=== PATIENT | female | born 1950 | race African-American/Black ===

== ENCOUNTER 2016-07-27 00:57 | Emergency (ER) | payer OTHER ==
[~2016-07-27] VITALS: Ht 170.2 cm; Wt 127.0 kg
[2016-07-27 00:57] VITALS: BP 173/98; PULSE 82; RESP 20; TEMP 98.1; O2SAT 97
--- NOTE | 2016-07-27 00:57 | NUR ---
Patient to ER bed 6 to gown for evaluation. Side rails up. Report given to Kateryna ZARAGOZA .
--- NOTE | 2016-07-27 00:57 | NUR ---
Marlene horta in ED - 07/27/16 at 0138 by TEDDY Patient to ER bed 6 to bannereleanor for evaluation. Side rails up. Report given to eDanna ZARAGOZA.
[2016-07-27] MEDS ORDERED: NACL 0.9% 1,000 ML IV ONE (01:04)
--- NOTE | 2016-07-27 01:08 | NUR ---
ER Dr. MARTINEZ at bedside examining patient.
[2016-07-27] MEDS ORDERED: KETOROLAC TROMETHAMINE 30 MG VIAL IVP ONE (01:15)
[2016-07-27] MEDS ORDERED: ONDANSETRON HCL 4 MG/2 ML VIAL IVP ONE (01:15)
[2016-07-27] MEDS ORDERED: DEXAMETHASONE SOD PHOSPHATE 10 MG/ML VIAL IVP ONE (01:15)
[2016-07-27 02:02] LABS: BASOPHILS # (AUTO) 0.3 K/uL (0.0-0.2); BASOPHILS % (AUTO) 2.8 % (0.0-2.0); EOSINOPHILS # (AUTO) 0.1 K/uL (0.0-0.4); EOSINOPHILS % (AUTO) 0.9 % (0.0-4.0); HEMATOCRIT 42.7 % (36-48); HEMOGLOBIN 14.1 g/dL (12.0-16.0); LYMPHOCYTES # (AUTO) 1.7 K/uL (1.0-5.5); LYMPHOCYTES % (AUTO) 15.7 % (20.5-51.5); MEAN CORPUSCULAR HEMOGLOBIN 29 pg (27-31); MEAN CORPUSCULAR HGB CONC 33 % (32-36); MEAN CORPUSCULAR VOLUME 87 fL (79.0-98.0); MONOCYTES # (AUTO) 0.3 K/uL (0.0-1.0); MONOCYTES % (AUTO) 3.1 % (1.7-9.3); NEUTROPHILS # (AUTO) 8.2 K/uL (1.8-7.7); NEUTROPHILS % (AUTO) 77.5 % (40.0-70.0); PLATELET COUNT (AUTO) 244 K/uL (130-430); RED BLOOD CELL COUNT(AUTO) 4.91 MIL/uL (4.2-6.2); RED CELL DISTRIBUTION WIDTH 12.9 % (9.0-15.0); WHITE BLOOD COUNT (AUTO) 10.6 K/uL (4.8-10.8)
[2016-07-27 02:04] LABS: BILIRUBIN,URINE NEGATIVE (NEGATIVE); BLOOD, URINE 1+ (NEGATIVE); CLARITY/URINE CLEAR (CLEAR); COLOR,URINE YELLOW (YELLOW); GLUCOSE,URINE NEGATIVE (NEGATIVE); KETONES,URINE NEGATIVE (NEGATIVE); LEUKOCYTE ESTERASE ,URINE NEGATIVE (NEGATIVE); NITRITE, URINE NEGATIVE (NEGATIVE); PH,URINE 7.5 (5.0-8.0); PROTEIN URINE NEGATIVE (NEGATIVE); UROBILINOGEN,URINE 0.2 (0.2-1.0)
--- NOTE | 2016-07-27 02:04 | NUR ---
PT C/O ABD PAIN 11/04 AND NAUSEA TODAY, THEN HAVING V/D STARTING 6HRS AGO. AFEBRILE. BP ELEVATED. PT STATES SHE DID NOT TAKE ANY MEDS AT HOME. PT VOMITED X1 IN ROOM. SAFETY PRECAUTIONS IN PLACE, WILL CONTINUE TO MONITOR.
[2016-07-27 02:13] LABS: BACTERIA,URINE FEW /HPF (None Seen); MUCUS,URINE None Seen /LPF (None Seen); WBC,URINE 0-3 /HPF (0-3)
[2016-07-27 02:16] LABS: CALCIUM 9.2 mg/dL (8.4-11.0); CREATININE 1.07 mg/dL (0.55-1.30); POTASSIUM 4.1 mmol/L (3.5-5.1)
[2016-07-27 02:21] LABS: TOTAL BILIRUBIN 0.5 mg/dL (0.0-1.0); TOTAL PROTEIN, SERUM 8.7 g/dL (6.4-8.3)
[2016-07-27] MEDS ORDERED: DEXAMETHASONE SOD PHOSPHATE 10 MG/ML VIAL ONE (02:35)
[2016-07-27] MEDS ORDERED: PROCHLORPERAZINE EDISYLATE 10 MG/2 ML VIAL IVP ONE (02:45)
[2016-07-27 03:35] VITALS: BP 153/83; PULSE 69; RESP 20; TEMP 98.2; O2SAT 98
--- NOTE | 2016-07-27 03:35 | NUR ---
Patient given written and verbal discharge instructions and verbalizes understanding. ER MD DR. MARTINEZ discussed with patient the results and treatment provided. Patient in stable condition. ID arm band removed. IV catheter removed intact and dressing applied, no active bleeding. Rx of ZOFRAN given. Patient educated on pain management and to follow up with PMD. Pain Scale 2/10, PT STATES PAIN IS TOLERABLE AND FEELS MUCH BETTER, WHEELCHAIRED SAFELY TO PRIVATE VEHICLE. Opportunity for questions provided and answered.
== END 2016-07-27 03:35 | disposition home or self-care (01) ==
LOC: SED 00:57
DX: K52.9 Noninfective gastroenteritis and colitis, unspecified (principal); I10 Essential (primary) hypertension
CPT/HCPCS: 36415; 74176; 80053; 81000; 82150; 83690; 85025; 96361; 96374; 96375; 99285; J0780; J1885; J2405; J7030; J1100

== ENCOUNTER 2016-08-03 15:10 | Emergency (ER) | payer OTHER ==
[~2016-08-03] VITALS: Ht 177.8 cm; Wt 106.6 kg
[2016-08-03 15:27] VITALS: BP_SYST 180
[2016-08-03] MEDS ORDERED: MORPHINE 4 MG/ML INJ. SYRINGE IVP ONE (15:45)
[2016-08-03] MEDS ORDERED: DIPHENHYDRAMINE INJ 50 MG/ML VIAL IVP ONE (15:45)
[2016-08-03 16:00] LABS: BILIRUBIN,URINE NEGATIVE (NEGATIVE); CLARITY/URINE CLEAR (CLEAR); COLOR,URINE YELLOW (YELLOW); GLUCOSE,URINE NEGATIVE (NEGATIVE); KETONES,URINE NEGATIVE (NEGATIVE); LEUKOCYTE ESTERASE ,URINE NEGATIVE (NEGATIVE); NITRITE, URINE NEGATIVE (NEGATIVE); PROTEIN URINE NEGATIVE (NEGATIVE); UROBILINOGEN,URINE 0.2 (0.2-1.0)
[2016-08-03 16:24] LABS: BASOPHILS # (AUTO) 0.2 K/uL (0.0-0.2); MEAN CORPUSCULAR HEMOGLOBIN 29 pg (27-31); MEAN CORPUSCULAR HGB CONC 33 % (32-36); MONOCYTES # (AUTO) 0.8 K/uL (0.0-1.0); RED CELL DISTRIBUTION WIDTH 12.7 % (9.0-15.0)
[2016-08-03 16:27] LABS: BASOPHILS % (AUTO) 1.5 % (0.0-2.0); EOSINOPHILS # (AUTO) 0.1 K/uL (0.0-0.4); EOSINOPHILS % (AUTO) 0.6 % (0.0-4.0); HEMATOCRIT 39.4 % (36-48); HEMOGLOBIN 12.9 g/dL (12.0-16.0); LYMPHOCYTES # (AUTO) 1.9 K/uL (1.0-5.5); LYMPHOCYTES % (AUTO) 14.1 % (20.5-51.5); MEAN CORPUSCULAR VOLUME 89 fL (79.0-98.0); MONOCYTES % (AUTO) 5.8 % (1.7-9.3); NEUTROPHILS # (AUTO) 10.4 K/uL (1.8-7.7); PLATELET COUNT (AUTO) 254 K/uL (130-430); RED BLOOD CELL COUNT(AUTO) 4.44 MIL/uL (4.2-6.2); WHITE BLOOD COUNT (AUTO) 13.4 K/uL (4.8-10.8)
[2016-08-03 16:33] LABS: BLOOD, URINE TRACE (NEGATIVE)
[2016-08-03 16:38] LABS: CREATININE 1.12 mg/dL (0.55-1.30)
[2016-08-03 16:40] LABS: PROTHROMBIN TIME 10.6 SECS (9.5-12.5)
[2016-08-03 16:42] LABS: ALBUMIN 3.6 g/dL (3.4-4.8); TOTAL BILIRUBIN 0.4 mg/dL (0.0-1.0)
[2016-08-03 16:51] LABS: BACTERIA,URINE FEW /HPF (None Seen); WBC,URINE 0-3 /HPF (0-3)
[2016-08-03 16:52] LABS: MUCUS,URINE None Seen /LPF (None Seen)
[2016-08-03] MEDS ORDERED: NA PHOS,M-B/NA PHOS,DI-BA 118 ML (FLEET ENEMA) RC ONE (17:00)
[2016-08-03 18:01] VITALS: BP_SYST 136
== END 2016-08-03 18:01 | disposition home or self-care (01) ==
LOC: SED 15:10
DX: K59.00 Constipation, unspecified (principal); I10 Essential (primary) hypertension
CPT/HCPCS: 36415; 71010; 74176; 80053; 81000; 83605; 83690; 85025; 85610; 87040; 93005; 96374; 96375; 99285; J1200; J2270; J7030

== ENCOUNTER 2017-09-22 14:20 | Emergency (ER) | payer OTHER ==
[~2017-09-22] VITALS: Ht 170.2 cm; Wt 111.6 kg
[2017-09-22 14:29] VITALS: BP_SYST 155
--- NOTE | 2017-09-22 14:36 | NUR ---
Patient to ER bed 06 to gown for evaluation. Side rails up. Report given to Ozzie.
--- NOTE | 2017-09-22 14:38 | NUR ---
Pt AAOx4 presents to ED c/o 12/05 pain to L side of body s/p falling off chair last night. Pt took tylenol last night to tolerate pain, but pain returned today. No deformites noted to site. No other injuries/complaints per pt/noted. Will continue to monitor.
--- NOTE | 2017-09-22 14:58 | NUR ---
ER Dr. Thomson at bedside examining patient.
--- NOTE | 2017-09-22 15:09 | NUR ---
Pt refused ibuprofen, requested tylenol, Dr. Thomson notified. Verbal order of 1g Extra Strength tylenol.
--- NOTE | 2017-09-22 15:14 | NUR ---
Pt taken to radiology via wheelchair in stable condition
[2017-09-22] MEDS ORDERED: ACETAMINOPHEN 500 MG TABLET PO ONE (15:15)
[2017-09-22] MEDS ORDERED: IBUPROFEN 600 MG TABLET PO ONE (15:15)
--- NOTE | 2017-09-22 16:00 | NUR ---
Patient given written and verbal discharge instructions and verbalizes understanding. ER MD Thomson discussed with patient the results and treatment provided. Patient in stable condition. ID arm band removed. Rx of Tramadol given. Patient educated on pain management and to follow up with PMD. Pain Scale 0. Opportunity for questions provided and answered. Medication side effect fact sheet provided.
[2017-09-22 16:02] VITALS: BP_SYST 151
== END 2017-09-22 16:00 | disposition home or self-care (01) ==
LOC: SED 14:20
DX: S23.3XXA Sprain of ligaments of thoracic spine, initial encounter (principal); M54.5 Low back pain; M25.562 Pain in left knee; M25.551 Pain in right hip; M25.552 Pain in left hip; I10 Essential (primary) hypertension; W07.XXXA Fall from chair, initial encounter; Y93.89 Activity, other specified; Y92.89 Other specified places as the place of occurrence of the external cause; Y99.8 Other external cause status
CPT/HCPCS: 72072-TC; 72100-TC; 72170-TC; 99284

== ENCOUNTER 2018-01-08 10:00 | Emergency (ER) | payer OTHER ==
[~2018-01-08] VITALS: Ht 170.2 cm; Wt 109.8 kg
[2018-01-08 10:09] VITALS: BP_SYST 166
--- NOTE | 2018-01-08 10:10 | NUR ---
Patient to ER bed 3 to gown for evaluation. Side rails up. Report given to NISHI ZARAGOZA.
--- NOTE | 2018-01-08 10:15 | NUR ---
Patient came in by BLS ambulance from [facility]. C/C of patient dizziness, increased lethargy, left flank pain, and generalized weakness. Patient has recent surgical history of renal mass removal to left kidney. Patient has PMH of HTN. Patient has dressings to left upper quadrant, dressing clean dry intact. Patient placed on monitor. Will continue to follow up and monitor.
[2018-01-08] MEDS ORDERED: NACL 0.9% 1,000 ML IV ONE ×2 (10:30→13:00)
--- NOTE | 2018-01-08 10:35 | NUR ---
ER at bedside examining patient.
--- NOTE | 2018-01-08 10:55 | NUR ---
Patient taken to CT and XR via gurney, patient in stable condition, escorted by XR tech.
[2018-01-08 11:01] LABS: BASOPHILS % (AUTO) 0.6 % (0.0-2.0); EOSINOPHILS # (AUTO) 0.2 K/uL (0.0-0.4); EOSINOPHILS % (AUTO) 3.5 % (0.0-4.0); HEMATOCRIT 35.9 % (36-48); HEMOGLOBIN 11.6 g/dL (12.0-16.0); LYMPHOCYTES # (AUTO) 2.4 K/uL (1.0-5.5); LYMPHOCYTES % (AUTO) 35.6 % (20.5-51.5); MEAN CORPUSCULAR HEMOGLOBIN 29 pg (27-31); MEAN CORPUSCULAR HGB CONC 32 % (32-36); MEAN CORPUSCULAR VOLUME 90 fL (79.0-98.0); MONOCYTES # (AUTO) 0.5 K/uL (0.0-1.0); MONOCYTES % (AUTO) 7.6 % (1.7-9.3); NEUTROPHILS # (AUTO) 3.6 K/uL (1.8-7.7); NEUTROPHILS % (AUTO) 52.7 % (40.0-70.0); PLATELET COUNT (AUTO) 366 K/uL (130-430); RED CELL DISTRIBUTION WIDTH 12.4 % (9.0-15.0); WHITE BLOOD COUNT (AUTO) 6.7 K/uL (4.8-10.8)
[2018-01-08 11:09] LABS: ANION GAP 7 (5-15); CALCIUM 9.2 mg/dL (8.4-11.0); CHLORIDE 102 mmol/L (98-107); CREATININE 1.16 mg/dL (0.55-1.30); GLUCOSE 98 mg/dL (70-99); POTASSIUM 4.2 mmol/L (3.5-5.1); SODIUM SERUM 139 mmol/L (136-145); UREA NITROGEN, BLOOD 9 mg/dL (8-21)
[2018-01-08 11:18] LABS: GFR AFRICAN AMERICAN 60 mL/min (>90)
[2018-01-08 11:20] LABS: ALANINE AMINOTRANSFERASE 65 U/L (12-78); ALBUMIN 2.7 g/dL (3.4-4.8); ASPARTATE AMINOTRANSFERASE 70 U/L (10-37); TOTAL BILIRUBIN 0.4 mg/dL (0.0-1.0)
[2018-01-08 11:43] LABS: BILIRUBIN,URINE NEGATIVE (NEGATIVE); BLOOD, URINE 2+ (NEGATIVE); CLARITY/URINE CLEAR (CLEAR); COLOR,URINE YELLOW (YELLOW); GLUCOSE,URINE NEGATIVE (NEGATIVE); KETONES,URINE NEGATIVE (NEGATIVE); LEUKOCYTE ESTERASE ,URINE 2+ (NEGATIVE); NITRITE, URINE NEGATIVE (NEGATIVE); PROTEIN URINE NEGATIVE (NEGATIVE); UROBILINOGEN,URINE 0.2 (0.2-1.0)
[2018-01-08 11:54] LABS: BACTERIA,URINE FEW /HPF (None Seen); MUCUS,URINE None Seen /LPF (None Seen); YEAST,URINE None Seen /HPF (None Seen)
[2018-01-08] MEDS ORDERED: IOHEXOL 350 mgI/mL, 150 ML INFUS..BTL IV ONE (12:43)
--- NOTE | 2018-01-08 12:43 | NUR ---
Patient taken to CTA, patient taken via gurney, patient in stable condition.
[2018-01-08] MEDS ORDERED: cefTRIAXone 1 GM IVPB PREMIX 50 ML IV ONE (13:00)
--- NOTE | 2018-01-08 13:13 | NUR ---
Patient returned from CTA, escorted by XR tech, patient returned in stable condition.
--- NOTE | 2018-01-08 14:01 | NUR ---
Patient up to bedside commode. Will call as requested. Will continue to follow up.
--- NOTE | 2018-01-08 14:12 | NUR ---
Called patients son, Huy, and updated him on his mother being at our facility. [phone]. He will call back after work, patient aware. Called patients , Pavel, and asked that he return as the patient was requesting. Patient request was also to pickle pumper belongings from [facility]. [phone]. Patient aware.
--- NOTE | 2018-01-08 15:36 | NUR ---
Patient made aware of plan to send back to [facility] and follow up with Dr. Carmen on outpatient basis. Will continue to follow up.
--- NOTE | 2018-01-08 16:08 | NUR ---
Report given to Trever at [facility], made aware of plan to have patient follow up as outpatient with urology. Will call back with ETA.
--- NOTE | 2018-01-08 16:10 | NUR ---
ETA called to [facility], ETA of 30-40 minutes.
--- NOTE | 2018-01-08 16:30 | NUR ---
Patient given written and verbal discharge instructions and verbalizes understanding. ER MD discussed with patient the results and treatment provided. Patient in stable condition. ID arm band removed. IV catheter removed intact and dressing applied, no active bleeding. No Rx given. Patient educated on pain management and to follow up with PMD. Pain Scale 0/10. Opportunity for questions provided and answered. Medication side effect fact sheet provided. Report called to Trever at [facility], patient to return to [id number].
[2018-01-08 16:32] VITALS: BP_SYST 165
== END 2018-01-08 16:30 | disposition home or self-care (01) ==
LOC: SED 10:00
DX: R42 Dizziness and giddiness (principal); R10.9 Unspecified abdominal pain; I10 Essential (primary) hypertension
CPT/HCPCS: 36415; 70450; 71045; 71275; 74176; 80053; 81000; 83605; 83880; 84484; 85025; 85379; 87040; 87086; 93005; 96361; 96365; 99285; J0696; J7030; Q9967; 87186-TC

== ENCOUNTER 2018-02-19 09:20 | Inpatient (IN) | payer OTHER ==
[~2018-02-19] VITALS: Ht 170.2 cm; Wt 110.7 kg
[2018-02-19 09:32] VITALS: BP_SYST 153
[2018-02-19 10:25] LABS: BASOPHILS # (AUTO) 0.1 K/uL (0.0-0.2); BASOPHILS % (AUTO) 0.9 % (0.0-2.0); EOSINOPHILS # (AUTO) 0.1 K/uL (0.0-0.4); EOSINOPHILS % (AUTO) 1.3 % (0.0-4.0); HEMATOCRIT 37.4 % (36-48); HEMOGLOBIN 11.8 g/dL (12.0-16.0); LYMPHOCYTES # (AUTO) 2.8 K/uL (1.0-5.5); LYMPHOCYTES % (AUTO) 47.6 % (20.5-51.5); MEAN CORPUSCULAR HEMOGLOBIN 28 pg (27-31); MEAN CORPUSCULAR HGB CONC 32 % (32-36); MEAN CORPUSCULAR VOLUME 89 fL (79.0-98.0); MONOCYTES # (AUTO) 0.4 K/uL (0.0-1.0); MONOCYTES % (AUTO) 6.9 % (1.7-9.3); NEUTROPHILS # (AUTO) 2.6 K/uL (1.8-7.7); NEUTROPHILS % (AUTO) 43.3 % (40.0-70.0); PLATELET COUNT (AUTO) 260 K/uL (130-430); RED BLOOD CELL COUNT(AUTO) 4.19 MIL/uL (4.2-6.2)
[2018-02-19 10:35] LABS: ANION GAP 8 (5-15); CALCIUM 9.4 mg/dL (8.4-11.0); CHLORIDE 104 mmol/L (98-107); CREATININE 1.02 mg/dL (0.55-1.30); GLUCOSE 106 mg/dL (70-99); POTASSIUM 3.6 mmol/L (3.5-5.1); SODIUM SERUM 138 mmol/L (136-145); UREA NITROGEN, BLOOD 12 mg/dL (8-21)
[2018-02-19 10:37] LABS: GFR AFRICAN AMERICAN 70 mL/min (>90)
[2018-02-19 10:39] LABS: ALANINE AMINOTRANSFERASE 18 U/L (12-78); ALBUMIN 3.2 g/dL (3.4-4.8); ASPARTATE AMINOTRANSFERASE 21 U/L (10-37); TOTAL BILIRUBIN 0.5 mg/dL (0.0-1.0)
[2018-02-19 10:42] LABS: ALCOHOL, BLOOD < 3 mg/dL (<10)
[2018-02-19 10:44] LABS: PROTHROMBIN TIME 9.9 SECS (9.5-12.5)
[2018-02-19 10:55] LABS: BILIRUBIN,URINE NEGATIVE (NEGATIVE); BLOOD, URINE 1+ (NEGATIVE); COLOR,URINE YELLOW (YELLOW); GLUCOSE,URINE NEGATIVE (NEGATIVE); KETONES,URINE NEGATIVE (NEGATIVE); LEUKOCYTE ESTERASE ,URINE 3+ (NEGATIVE); NITRITE, URINE NEGATIVE (NEGATIVE); PH,URINE 6.5 (5.0-8.0); PROTEIN URINE NEGATIVE (NEGATIVE); UROBILINOGEN,URINE 0.2 (0.2-1.0)
[2018-02-19 10:56] LABS: CLARITY/URINE HAZY (CLEAR)
[2018-02-19 11:00] LABS: BACTERIA,URINE FEW /HPF (None Seen)
[2018-02-19] MEDS ORDERED: cefTRIAXone 1 GM in D5W 50 ML IV ONE (11:00)
[2018-02-19 11:01] LABS: MUCUS,URINE 1+ /LPF (None Seen)
[2018-02-19 11:15] LABS: BARBITURATE, URINE NEGATIVE (NEG <=200); BENZODIAZEPINE, URINE NEGATIVE (NEG <=150); CANNABINOID, URINE NEGATIVE (NEG <=50); COCAINE, URINE NEGATIVE (NEG <=150); METHAMPHETAMINES SCREEN,URINE NEGATIVE (NEG <=500); OPIATE, URINE NEGATIVE (NEG <=100); PHENCYCLIDINE SCREEN,URINE NEGATIVE (NEG <=25); UR TRICYCLIC ANTIDEPRESSANTS NEGATIVE (NEG <=300); URINE AMPHETAMINE NEGATIVE (NEG <=500); URINE METHADONE NEGATIVE (NEG <=200); URINE OXYCODONE SCREEN NEGATIVE (NEG <=100); URINE PROPOXYPHENE SCREEN NEGATIVE (NEG <=300)
[2018-02-19] MEDS ORDERED: cefTRIAXone 1 GM VIAL ONE (11:24)
[2018-02-19] MEDS ORDERED: LISI-600 PO (11:53)
[2018-02-19] MEDS ORDERED: HYDR-4272 PO (11:53)
[2018-02-19] MEDS ORDERED: ATEN-41 PO (11:53)
[2018-02-19] MEDS ORDERED: DOCU-144 PO (11:53)
[2018-02-19] MEDS ORDERED: ONDANSETRON HCL 4 MG/2 ML VIAL IVP PRN (12:00)
[2018-02-19] MEDS ORDERED: GUAI10SY3 PO (12:02)
[2018-02-19] MEDS ORDERED: LIDOINT TP (12:02)
[2018-02-19] MEDS ORDERED: OXYC-128 PO (12:02)
[2018-02-19] MEDS ORDERED: ENOXAPARIN SODIUM 40 MG/0.4 ML SYRINGE SUBCUT ONE (13:00)
[2018-02-19 13:08] VITALS: BP_SYST 156
[2018-02-19 16:00] VITALS: BP_SYST 148
[2018-02-19] MEDS ORDERED: LORazepam 2 MG/ML VIAL IVP SCH (19:00)
[2018-02-19 20:00] VITALS: BP_SYST 135
[2018-02-19] MEDS: ACETAMINOPHEN 325 MG TABLET PO PRN (22:46)
[2018-02-20 00:15] VITALS: BP_SYST 154
[2018-02-20 08:00] VITALS: BP_SYST 153
[2018-02-20] MEDS: ASPIRIN 325 MG TABLET PO SCH (09:21)
[2018-02-20] MEDS: ATORVASTATIN 20 MG TABLET PO SCH (09:21)
[2018-02-20] MEDS: LORazepam 2 MG/ML VIAL ONE ×3 (10:03→10:15)
[2018-02-20 12:15] VITALS: BP_SYST 141
[2018-02-20 16:50] VITALS: BP_SYST 164
[2018-02-20 20:00] VITALS: BP_SYST 133
[2018-02-20] MEDS: ACETAMINOPHEN 325 MG TABLET PO PRN (21:12)
[2018-02-21] MEDS: ASPIRIN 325 MG TABLET PO SCH (08:41)
[2018-02-21] MEDS: ATORVASTATIN 20 MG TABLET PO SCH (08:42)
[2018-02-21 08:53] VITALS: BP_SYST 151
[2018-02-21] MEDS ORDERED: LISINOPRIL 20 MG TABLET PO ONE (11:11)
[2018-02-21] MEDS ORDERED: ATENOLOL 25 MG TABLET(TENORMIN) PO ONE (11:11)
[2018-02-21 12:14] LABS: THYROID STIMULATING HORMONE 0.42 uIu/mL (0.34-4.82)
[2018-02-21 12:33] VITALS: BP_SYST 144
[2018-02-21] MEDS ORDERED: LORazepam 2 MG/ML VIAL IVP ONE (14:00)
[2018-02-21 16:27] VITALS: BP_SYST 125
[2018-02-21 20:00] VITALS: BP_SYST 130
[2018-02-22 01:00] VITALS: BP_SYST 156
[2018-02-22 08:00] VITALS: BP_SYST 147
[2018-02-22 08:02] VITALS: BP_SYST 147
[2018-02-22] MEDS: ATORVASTATIN 20 MG TABLET PO SCH (08:13)
[2018-02-22] MEDS: ASPIRIN 325 MG TABLET PO SCH (08:14)
[2018-02-22] MEDS ORDERED: ATENOLOL 25 MG TABLET(TENORMIN) PO SCH (09:00)
[2018-02-22] MEDS ORDERED: LISINOPRIL 20 MG TABLET PO SCH (09:00)
[2018-02-22 12:10] VITALS: BP_SYST 148
[2018-02-22 12:20] VITALS: BP_SYST 118
[2018-02-22 12:52] VITALS: BP_SYST 148
== END 2018-02-22 15:00 | DRG 65 ==
LOC: SED 09:20 → STU 11:58
PROVIDERS: ADMIT Internal Medicine; ATTEND Internal Medicine
DX: I63.9 Cerebral infarction, unspecified (principal); E44.1 Mild protein-calorie malnutrition; I10 Essential (primary) hypertension; G89.29 Other chronic pain; I25.10 Atherosclerotic heart disease of native coronary artery without angina pectoris; Z79.891 Long term (current) use of opiate analgesic; Z86.73 Personal history of transient ischemic attack (TIA), and cerebral infarction without residual deficits; Z79.899 Other long term (current) drug therapy
CPT/HCPCS: 36415; 70450-TC; 70544; 70547; 70551; 71045; 80053; 80061; 80307; 81000-TC; 83605; 84443-TC; 84484; 85025; 85610-TC; 85730-TC; 87040-TC; 87086; 93005; 93306; 93880; 96365; 97110-GP; 97116-GP; 97530-GP; 99285; G0378; G0482; J0696; J1650; J2060

== ENCOUNTER 2018-04-08 21:49 | Emergency (ER) | payer BC, OTHER ==
[~2018-04-08] VITALS: Ht 170.2 cm; Wt 108.4 kg
[~2018-04-08 21:49] MED LIST: ATEN-41 PO; DOCU-144 PO; LIDOINT TP; LISI-600 PO; OXYC-128 PO
[2018-04-08 21:58] VITALS: BP_SYST 162
[2018-04-08] MEDS ORDERED: LIP40 PO (22:14)
[2018-04-08] MEDS ORDERED: FAMO20TA8 PO (22:14)
[2018-04-08] MEDS ORDERED: DULO20CA PO (22:14)
[2018-04-08] MEDS ORDERED: ASPI-989 PO (22:14)
[2018-04-08] MEDS ORDERED: LISI40TA4 PO (22:14)
[2018-04-08] MEDS ORDERED: ACETAMINOPHEN 650 MG/20.3 ML UDC PO ONE (22:45)
[2018-04-08 23:05] LABS: BASOPHILS # (AUTO) 0.1 K/uL (0.0-0.2); BASOPHILS % (AUTO) 0.9 % (0.0-2.0); EOSINOPHILS # (AUTO) 0.2 K/uL (0.0-0.4); HEMATOCRIT 34.8 % (36-48); HEMOGLOBIN 11.3 g/dL (12.0-16.0); LYMPHOCYTES # (AUTO) 2.8 K/uL (1.0-5.5); LYMPHOCYTES % (AUTO) 45.9 % (20.5-51.5); MEAN CORPUSCULAR HEMOGLOBIN 29 pg (27-31); MEAN CORPUSCULAR HGB CONC 33 % (32-36); MEAN CORPUSCULAR VOLUME 89 fL (79.0-98.0); MONOCYTES # (AUTO) 0.5 K/uL (0.0-1.0); MONOCYTES % (AUTO) 8.4 % (1.7-9.3); NEUTROPHILS # (AUTO) 2.6 K/uL (1.8-7.7); NEUTROPHILS % (AUTO) 41.8 % (40.0-70.0); PLATELET COUNT (AUTO) 223 K/uL (130-430); RED BLOOD CELL COUNT(AUTO) 3.91 MIL/uL (4.2-6.2); RED CELL DISTRIBUTION WIDTH 13.5 % (9.0-15.0); WHITE BLOOD COUNT (AUTO) 6.2 K/uL (4.8-10.8)
[2018-04-08 23:15] LABS: CALCIUM 8.9 mg/dL (8.4-11.0); CREATININE 1.06 mg/dL (0.55-1.30); POTASSIUM 3.8 mmol/L (3.5-5.1)
[2018-04-08 23:21] LABS: ALBUMIN 2.8 g/dL (3.4-4.8); TOTAL BILIRUBIN 0.3 mg/dL (0.0-1.0)
[2018-04-09 00:33] VITALS: BP_SYST 149
== END 2018-04-09 00:36 | disposition home or self-care (01) ==
LOC: SED 21:49
DX: I10 Essential (primary) hypertension (principal); Z85.528 Personal history of other malignant neoplasm of kidney; Z79.82 Long term (current) use of aspirin; Z79.899 Other long term (current) drug therapy
CPT/HCPCS: 36415; 70450-TC; 80053; 85025; 93005; 99284

== ENCOUNTER 2018-07-23 14:53 | Emergency (ER) | payer BC, MEDICAID ==
[~2018-07-23] VITALS: Ht 170.2 cm; Wt 109.3 kg
[~2018-07-23 14:53] MED LIST changes: +ASPI-989 PO; +DULO20CA PO; +FAMO20TA8 PO; -LIDOINT TP; +LIP40 PO; -LISI-600 PO; +LISI40TA4 PO; -OXYC-128 PO
[2018-07-23 15:20] VITALS: BP_SYST 135
[2018-07-23] MEDS ORDERED: MORPHINE 4 MG/ML INJ. SYRINGE IM ONE (16:45)
[2018-07-23 17:06] VITALS: BP_SYST 131
== END 2018-07-23 17:07 | disposition home or self-care (01) ==
LOC: SED 14:53
DX: M54.5 Low back pain (principal); I10 Essential (primary) hypertension; Z86.73 Personal history of transient ischemic attack (TIA), and cerebral infarction without residual deficits; Z85.528 Personal history of other malignant neoplasm of kidney; Z79.82 Long term (current) use of aspirin; Z79.899 Other long term (current) drug therapy
CPT/HCPCS: 96372; 99283; J2270